=== PATIENT | male | born 1975 | race Caucasian/White ===

== ENCOUNTER 2020-12-12 14:31 | Emergency (ER) | payer SELFPAY ==
[2020-12-12 14:36] VITALS: BP 141/86; PULSE 94; RESP 16; TEMP 36.5; O2SAT 96; BMI 24.3
--- NOTE | 2020-12-12 14:43 | ED_ITS ---
HPI - Extremity Injury (Upper) General: Chief Complaint: Extremity Injury, Upper Stated Complaint: FINGER INJURY Time Seen by Provider: 12/12/20 14:42 Source: patient Mode of arrival: ambulatory Limitations: no limitations History of Present Illness: HPI narrative: Patient is a 45-year-old male who presents to ED today for evaluation following a left index finger laceration. Jarad nina tells me he initially presented to urgent care but was told to come to the emergency department. Patient states he sustained the laceration while using a box knife. His tetanus is UTD. Bleeding is controlled at this time. complaint: injury to: left and finger Onset (ago): hour(s) Other Extremity Injury: Left: fingers Other injuries: none Place: home Severity: mild Relieving factors: none Exacerbating factors: none Context: laceration Associated symptoms: Reports no associated symptoms Treatments prior to arrival: bandage Review of Systems Musc: Reports: extremity pain (L index finger) Skin/Breast: Reports: other (finger laceration) Neuro: Denies: numbness in extremities or sensory changes Physical Exam Const: COMMON NORMALS: no acute distress, average body habitus, patient oriented x3, no limitations, healthy appearing, alert and well nourished Extremity: OTHER: L index finger has a 2cm laceration to the distal ulnar aspect; no nail damage; bleeding intact; full ROM; NV intact Neuro: COMMON NORMALS: patient oriented x3, moves all extremities, no focal motor deficits and no sensory deficits noted SENSORIUM/ORIENTATION: Yes alert Skin: NARRATIVE SKIN EXAM: see extremity assessment; otherwise normal skin exam Procedures Laceration Laceration 1: Site: hand (L index finger) Side (If applicable): left Size (cm): 1.5 Description: linear Depth: simple, single layer Local Anesthetic: lidocaine 1% (digital block) Amount of anesthesia used (mL): 3.0 Pre-repair: wound explored and irrigated extensively Skin layer closed with: nylon Size (cm): 4-0 Number of sutures: 4 Technique: simple, interrupted Course Vital Signs: Vital signs: Vital Signs Temperature 97.7 F 12/12/20 14:36 Pulse Rate 78 12/12/20 15:29 Respiratory Rate 16 12/12/20 15:29 Blood Pressure 144/84 12/12/20 15:29 Pulse Oximetry 98 12/12/20 15:29 MDM - Extremity Injury (Upper) MDM Narrative: Medical decision making narrative: Laceration repaired as documented. Tetanus is UTD. Patient tells me he DOES NOT want this to be Worker's Comp. He knows he will be responsible for the bill related to the visit. XR reading a small density noted near his middle phalanx-this most likely is a small speck of bone given his mechanism of injury. He will be covered with antibiotics as this is technically an open fracture. Will place in a finger splint and have him follow-up with orthopedics. Wound care regarding the laceration and sutures were discussed. Imaging Data^: XR L index finger: Radiologist's impression: [id number] [place], [place] [address]YFav ReportSigned Patient: Lindsey Oden #: [id number]: [id number]#:[id number]/Sex: 45 / MADM Date: 12/12/20Loc: ERRoom/Bed:Attending Dr: Ordering Provider/Ordering MD: Chen Shane Date of Service: 12/12/20 Procedure(s): XR finger LT min 2V 56195 Accession Number(s): [id number] Report Number: [id number] WS: [id number] 3 views of the left second finger, 12/12/2020 Clinical Data: trauma; index Comparison: None. Findings: No fractures or dislocations are seen. There is soft tissue swelling on the radial side of the left second DIP joint. There is a small radiopaque density on the dorsal aspect of the distal middle phalanx of the second finger. The joint spaces are not remarkable. XR/XR finger LT min 2V 22429 Impression: 1. Soft tissue swelling of the radial aspect of the left second finger DIP joint. 2. Small density on distal subcutaneous tissue of the level of the distal portion of the second finger middle phalanx. Dictated By:Nalini Reyes MDSigned By:Nalini Reyes MDSigned Date/Time:12/12/20 1601DD/ 1558 Discharge Plan Discharge Patient Disposition: Home Clinical Impression: Fracture of middle phalanx of left index finger Qualifiers: Encounter type: initial encounter Fracture type: open Fracture alignment: nondisplaced Qualified Code(s): S62.651B - Nondisplaced fracture of middle phalanx of left index finger, initial encounter for open fracture Condition: Stable Prescriptions: New cephalexin 500 mg capsule 500 mg PO Q6H 7 Days Qty: 28 RF: 0 Discharge Orders: Discharge ED (Routine); Ordered 12/12/20 Ordered By: Chen Shane Patient Instructions: Finger Fracture (ED), Finger Laceration (ED) Activity Restrictions/Additional Instructions: Keep wound/laceration clean with warm soap and water twice daily. Monitor for signs of infection such as redness, swelling, increased pain, or drainage. Please seek medical re-evaluation if these occur. If you received sutures today these will need to be removed (unless you were told by the provider that they are absorbable). The provider should have discussed with you the length of time until removal-7 DAYS. You may return to the emergency department for this service. If your wound was closed with Steri-Strips or glue/adhesive these will fall off within the next week or so. As we discussed there is a very small density noted on your XR that is most likely a very small larry on bone given your mechanism of injury. We will have case management set you up with orthopedics. Coding Level of Care Code ED Sand Conditioner Machine for Inga Rangel Exam Expanded Problem Focused
--- NOTE | 2020-12-12 14:45 | XR_ITS ---
WS: [id number] 3 views of the left second finger, 12/12/2020 Clinical Data: trauma; index Comparison: None. Findings: No fractures or dislocations are seen. There is soft tissue swelling on the radial side of the left s econd DIP joint. There is a small radiopaque density on the dorsal aspect of the distal middle phalan x of the second finger. The joint spaces are not remarkable. XR/XR finger LT min 2V [id number] Impression: 1. Soft tissue swelling of the radial aspect of the left second finger DIP join t. 2. Small density on distal subcutaneous tissue of the level of the distal porti on of the second finger middle phalanx.
[2020-12-12 15:29] VITALS: BP 144/84; PULSE 78; RESP 16; O2SAT 98
--- NOTE | 2020-12-13 11:30 | DCPLANNER ---
manager marketing had message to schedule a follow up appointment for patient with ortho for an open finger fracture. manager marketing called the ortho clinic, spoke with Suzette, gave clinic patients information. manager marketing was told that patients information would be printed and reviewed. Clinic will call patient with appointment information.
--- NOTE | 2020-12-26 08:18 | DCPLANNER ---
specialist managers called the ortho clinic to confirm that a follow up appointment had been scheduled for patient. specialist managers spoke with Tracee, was told that clinic has left a voicemail for patient and is waiting for patient to contact the clinic to schedule an appointment. specialist managers called phone number [phone], unable to speak with patient at this time. specialist managers left a voicemail for patient to return caseworker protective services phone call if still interested in the referral to the ortho clinic.
== END 2020-12-12 17:19 | disposition home or self-care (01) ==
PROVIDERS: Emergency Provider Physician Assistant
DX: S62.651B Nondisplaced fracture of middle phalanx of left index finger, initial encounter for open fracture (principal); W26.0XXA Contact with knife, initial encounter
CPT/HCPCS: 12001; 73140; 99283